=== PATIENT | female | born 1995 | race Caucasian/White ===

== ENCOUNTER 2024-03-27 00:22 | Inpatient (IN) | payer BC, OTHER, SELFPAY ==
[2024-03-26 23:45] VITALS: BP 138/98; PULSE 76; PULSE 80; O2SAT 97
[2024-03-27] VITALS (84 sets, daily range): BP systolic 106–165; BP diastolic 58–101; PULSE 70–129; RESP 16–18; TEMP 36.5–37.5; O2SAT 93–100; BMI 28.6
[2024-03-27 00:15] LABS: Amnisure Rom* POSITIVE
[2024-03-27 00:54] LABS: Hematocrit 42.8 % (33.0-51.0); Hemoglobin* 14.3 gm/dL (12.0-16.0); Mean Corpuscular HGB Conc 33 gm/dL (32-36); Mean Corpuscular Hemoglobin 32 pg (26-34); Mean Corpuscular Volume 96 fL (80-100); Platelet Count* 148 K/uL (140-440); Red Blood Count 4.44 m/uL (4.00-5.20); White Blood Count* 9.65 K/uL (4.50-11.00)
[2024-03-27 00:58] LABS: Slide Review Reflex No
[2024-03-27 01:11] LABS: Creatinine* 0.5 mg/dL (0.5-1.5); Estimated Glomerular Filt Rate 131 ml/min
[2024-03-27 01:12] LABS: Alanine Aminotransferase* 17 U/L (4-35); Aspartate Amino Transferase* 25 U/L (12-35); Blood Urea Nitrogen* 10 mg/dL (5-24)
[2024-03-27] MEDS: LACTATED RINGERS 500 ML 500 ML 650 ML IV (03:30)
[2024-03-27] MEDS: LIDOCAINE 2% (PF) 5 ML VIAL EPIDURAL (03:56)
--- NOTE | 2024-03-27 03:58 | PM.ANBPRC ---
PFSH PFSH Social History What is your current living situation?: I presently have a place to live Problems where you live: no known problems In the past 12 months, utilities in danger of being shut off: no In the past 12 mos, have been you worried that your food would run out before you had money to buy more?: never true In the past 12 mos, the food you bought just didn't last and you didn't have money to buy more?: never true Smoking Status: Never smoker How often does anyone, including family, friends and others, physically hurt you: never How often does anyone, including family, friends and others, insult or talk down to you: never How often does anyone, including family, friends and others, threaten you with harm: never How often does anyone, including family, friends and others, scream or curse at you: never Meds Home Medications and Allergies Home Medications ?Medication ?Instructions ?Recorded ?Confirmed ?Type vit no.95-ferrous 1 tab PO DAILY 03/26/24 03/26/24 History fumarate 28 mg-folic acid 800 mcg tablet () cetirizine 10 mg capsule (Zyrtec) 10 mg PO DAILY PRN 03/27/24 03/27/24 History Allergies Allergy/AdvReac Type Severity Reaction Status Date / Time No Known Drug Allergies Allergy Verified 03/27/24 01:00 Results Labs Labs: Laboratory Results - last 24 hr 03/26/24 03/27/24 23:46 00:45 WBC 9.65 RBC 4.44 Hgb 14.3 Hct 42.8 MCV 96 MCH 32 MCHC 33 Plt Count 148 BUN 10 Creatinine 0.5 Estimated GFR 131 AST 25 ALT 17 Membrane Rupture POSITIVE Blood Type A Positive Antibody Screen NEGATIVE Vital Signs Vital Signs: Last Vital Signs Temp 99.2 F 03/27/24 02:35 Pulse 86 03/27/24 03:56 Resp 18 03/27/24 02:35 BP 137/71 03/27/24 03:56 Pulse Ox 98 03/27/24 03:56 Weight: 75.659 kg Height: 162.56 cm Anesthesia Procedures Epidural Insertion Patient Location: OB Start Time: 03:40 Stop Time: 04:10 Start Date: 03/27/24 Stop Date: 03/27/24 Reason for Block: primary anesthetic Patient Position: sitting Performed By: Todd Tracey Preanesthetic Checklist: IV checked, risks and benefits discussed, surgical consent, monitors and equipment checked, pre-op evaluation, timeout performed and anesthesia consent Prep: chlorhexidine gluconate Monitoring: blood pressure monitoring, electronic device monitor, continuous pulse oximetry and heart rate Approach: midline Vertebral Space: lumbar (1-5) Needle Type: Tuohy needle Injection Technique: continuous catheter (catheter) Needle gauge: 17 Needle Length (cm): 10 cm Needle Insertion Depth (cm): 5 Catheter Gauge: 19 Catheter Type: multi-orifice Catheter at skin depth (cm): 10 Test Dose Result: negative and lidocaine 1.5% with epinephrine 1 to 200,000
[2024-03-27] MEDS: ROPIVACAINE 0.2% 100 ml 100 ML 12 MG EPIDURAL (04:01)
[2024-03-27] MEDS: LACTATED RINGERS 500 ML 500 ML IV (04:11)
[2024-03-27] MEDS: LACTATED RINGERS 500 ML 500 ML 125 ML IV (05:27)
[2024-03-27 06:08] LABS: Total Protein Urine 10 mg/dL
[2024-03-27 06:09] LABS: Creatinine Urine 89.9 mg/dL; Protein Creatinine Ratio Urine 0.11 (0-0.19)
[2024-03-27] MEDS: OXYTOCIN 30 unit/500 ML in NS 30 UNIT/500 ML BAG 300 UNIT IVPB (08:57)
[2024-03-27] MEDS: LIDOCAINE 1 % PF 30 ML INJECTION (09:06)
--- NOTE | 2024-03-27 09:28 | PM.OBHPLI ---
OB - H&P: HPI Labor/Induction History of Present Illness Time Seen by Provider: 08:00 Date Seen: 03/27/24 Chief Complaint: The patient is a 28 year old 1 para 0 at 40.3 weeks gestation who presented after SROM at 10:45 on 03/26/2024 Chief complaint: maternity : 1 Para: 0 Indications for induction: induced hypertension Narrative: Mile Cordero is a 28 year old female who presented after SROM at home of clear fluid at 40.2 weeks gestation. She otherwise felt well. Was found to have elevated BP >140/90 during labor. No prior to labor. She has had weeks of swelling, no other symptoms/signs of preeclampsia. Pre-E labs were all within normal limits. History of Present care: good care Ultrasounds: normal 1st trimester US and normal mid trimester US complications: gestational hypertension (diagnosed during labor) Labs Blood type: A (+) positive Rubella: immune RPR/VDLR: nonreactive GBS status: negative HBsAG: negative Review of Systems Status of ROS: Reports: 10 or more systems reviewed and unremarkable except as noted in History and below Meds Home Medications and Allergies Home Medications ?Medication ?Instructions ?Recorded ?Confirmed ?Type vit no.95-ferrous 1 tab PO DAILY 03/26/24 03/26/24 History fumarate 28 mg-folic acid 800 mcg tablet () cetirizine 10 mg capsule (Zyrtec) 10 mg PO DAILY PRN 03/27/24 03/27/24 History Allergies Allergy/AdvReac Type Severity Reaction Status Date / Time No Known Drug Allergies Allergy Verified 03/27/24 01:00 OB - H&P: Exam Physical Exam: Vital signs: Temp Pulse Resp BP Pulse Ox 99.5 F 87 18 123/66 99 03/27/24 07:07 03/27/24 09:17 03/27/24 07:07 03/27/24 09:17 03/27/24 07:49 Constitutional: Constitutional: no acute distress Comments: resting comfortably after epidural Routine HEENT Exam: Head: Present atraumatic and normal inspection Routine Neck Exam: Neck: Present full ROM Routine Respiratory Exam: Respiratory: Present CTA bilaterally Routine Cardiovascular Exam: Cardiovascular: RRR, S1 and S2 Detailed Labor and Delivery Exam: Patient Gravid: Yes Dilation (cm): 10 Effacement (%): 100 Fetus (Single): Station: 0 Amniotic Membrane Status: SROM Amniotic Membrane Fluid Description: Clear Heart Rate Baseline: 150 Monitor Accelerations: Present Monitor Decelerations: Variable (one deep variable, smaller early decels) Longterm Variability: Moderate (6-25) Routine Extremities Exam: Extremities: Present pedal edema; Absent calf tenderness Routine Skin Exam: Present intact Routine Neurological Exam: Present alert and oriented X3 Detailed Psychiatric Exam: Mood and affect: Present flat OB - Results Labs Labs: Short CBC 03/27/24 Range/Units 00:45 WBC 9.65 (4.50-11.00) K/uL Hgb 14.3 (12.0-16.0) gm/dL Hct 42.8 (33.0-51.0) % Plt Count 148 (140-440) K/uL BMP 03/27/24 00:45 BUN 10 Creatinine 0.5 Liver Function 03/27/24 Range/Units 00:45 AST 25 (12-35) U/L ALT 17 (4-35) U/L OB - Problem Based A/P Additional Plan (1) Term : Status: Acute (2) Gestational hypertension: Problem details: Elevated BP >140/90 during labor, Preeclampsia labs within normal limits Status: Acute (3) SROM (spontaneous rupture of membranes): Status: Acute Plan - expectant management, anticipate Delivery/Labor/Induction Plan Plan: expectant management
--- NOTE | 2024-03-27 09:36 | W.PM.VAGDE_ITS ---
OB Procedure Vag Delivery Mother Details Mother Details: The patient is a 28 year-old, 1, Para 0, admitted on 03/27/24 at 40.2 Days gestation. : 1 Para: 1 Weeks Gestation: 40.3 Admission Date: 03/26/24 Additional Details Amniotic Membrane Status: SROM Amniotic Membrane Rupture Date: 03/26/24 Amniotic Membrane Rupture Time: 10:45 Amniotic Membrane Fluid Description: Clear Analgesia/Anesthesia Type: Epidural Waterbirth: No [place]: No Labor Onset: 05:18 Complete: 07:27 Pushin:55 Heart: heart tones during second stage: Had prolonged decels with pushing, requiring repositioning. We pushed on side and FHT recovered more quickly between contractions. Delivery Details Delivery Date: 03/27/24 Delivery Time: 08:56 Route of delivery: Infant Gender: Male Infant Viability: Alive; Heart Rate Present Position at Delivery: OA Delivery Details: Patient presented to L&D after SROM of clear fluid at home. Progressed well, receiving epidural for analgesia. She became complete at 0727 and I was called to the bedside. We started pushing at 0755, requiring some position changes due to prolonged decels into the 90s that recovered with maternal side lie. She pushed effectively, delivering a viable male infant over intact perineum at 0856 . Infant was placed on maternal abdomen.? Terminal meconium was noted. Cord was clamped and cut after a 30-60 second delay by father of baby who was in attendance at delivery. Nose and mouth were bulb suctioned.? Infant weight pending. Small 2nd degree laceration was repaired in the usual fashion after administration of lidocaine. 1 Minute Interval Total Score: 9 5 Minute Interval Total Score: 9 Additional Details Shoulder Dystocia: No Placenta Delivery Time: 09:03 Placental Delivery Description: Spontaneous Delivery repair: Vicryl Procedure Done: Global Blood Loss: 200 Laceration: Perineal - 2nd Degree Episiotomy Description: None Blood Loss Measurement Type: QBL Bakri Used: No Sponge/Need Count Correct: Yes Cord Vessel Description: 3 Vessels Event Summary Status: Mother and were stable after delivery.
[2024-03-27] MEDS: IBUPROFEN 600 MG TABLET PO ×3 (10:59→23:17)
[2024-03-28 02:30] VITALS: BP 125/80; PULSE 91; RESP 16; TEMP 36.7; O2SAT 96
[2024-03-28] MEDS: IBUPROFEN 600 MG TABLET PO (06:02)
[2024-03-28 06:30] VITALS: BP 119/83; PULSE 85; RESP 16; TEMP 36.6; O2SAT 96
[2024-03-28 06:31] LABS: Hemoglobin* 10.5 gm/dL (12.0-16.0)
[2024-03-28 08:05] VITALS: BP 124/78; PULSE 87; RESP 16; TEMP 36.6; O2SAT 97
--- NOTE | 2024-03-28 08:53 | PM.OBDSVD1 ---
DS: Providers Provider Date Seen: 03/28/24 Date of admission: 03/27/24 00:22 Primary care physician: Not a Local Provider Admitting Clinician: Yoli Crespo DO Attending Physician on discharge: Yoli Crespo DO Date of Discharge: 03/28/24 DS: Diagnosis Discharge Diagnosis (1) Vaginal delivery: Status: Acute Exam Const: Vital Signs, click to edit/add: Vital Signs - 24 hr 03/27/24 09:01 03/27/24 09:01 03/27/24 09:02 Temperature 99.3 F Pulse Rate 99 129 H Pulse Rate [Pulse Oximeter] Respiratory Rate 16 Blood Pressure 120/77 132/81 Blood Pressure [Ri ght Arm] Pulse Oximetry Oxygen Delivery Me thod 03/27/24 09:17 03/27/24 09:17 03/27/24 09:32 Temperature Pulse Rate 87 88 Pulse Rate [Pulse Oximeter] Respiratory Rate 16 Blood Pressure 123/66 116/61 Blood Pressure [Ri ght Arm] Pulse Oximetry Oxygen Delivery Mi thod 03/27/24 09:32 03/27/24 09:47 03/27/24 09:47 Temperature Pulse Rate 88 Pulse Rate [Pulse Oximeter] Respiratory Rate 16 16 Blood Pressure 122/63 Blood Pressure [Ri ght Arm] Pulse Oximetry Oxygen Delivery Me thod 03/27/24 10:02 03/27/24 10:02 03/27/24 10:32 Temperature Pulse Rate 83 88 Pulse Rate [Pulse Oximeter] Respiratory Rate 16 Blood Pressure 123/67 127/64 Blood Pressure [Ri ght Arm] Pulse Oximetry Oxygen Delivery Mi thod 03/27/24 10:32 03/27/24 10:47 03/27/24 10:47 Temperature Pulse Rate 83 Pulse Rate [Pulse Oximeter] Respiratory Rate 16 16 Blood Pressure 128/64 Blood Pressure [Ri ght Arm] Pulse Oximetry Oxygen Delivery Me thod 03/27/24 11:02 03/27/24 11:02 03/27/24 16:03 Temperature 99.2 F 97.9 F Pulse Rate 80 Pulse Rate [Pulse Oximeter] 76 Respiratory Rate 16 16 Blood Pressure 130/69 Blood Pressure [Ri ght Arm] 113/74 Pulse Oximetry 97 Oxygen Delivery Me thod Room Air 03/27/24 22:00 03/28/24 02:30 03/28/24 06:30 Temperature 98.9 F 98.0 F 97.8 F Pulse Rate Pulse Rate [Pulse Oximeter] 96 91 85 Respiratory Rate 16 16 16 Blood Pressure Blood Pressure [Ri ght Arm] 130/79 125/80 119/83 Pulse Oximetry 96 96 96 Oxygen Delivery Me thod Room Air Room Air Room Air 03/28/24 08:05 Temperature 97.8 F Pulse Rate Pulse Rate [Pulse Oximeter] 87 Respiratory Rate 16 Blood Pressure Blood Pressure [Ri ght Arm] 124/78 Pulse Oximetry 97 Oxygen Delivery Me thod Room Air Documenting provider has reviewed patient's vital signs: yes Common normals: no apparent distress Neck & C-Spine: Common normals: full ROM, no lymphadenopathy, supple and no meningeal signs GI: Common normals: soft to palpation Palpation: soft : OB/external & speculum: Yes deferred Uterus: U/2 Lochia: scant Uterus palpation: uterus nontender Neuro: Meningeal signs: no meningeal signs OB - DS: Summary Hospital Course Hospital Course: The patient is a 28 year old G 1 P 1 at 40.3 weeks gestation that was admitted to the Center on 03/27/24 for YOBANY. She had an uncomplicated vaginal delivery. She delivered a viable male infant. She did have a few elevated blood pressures in labor but these resolved when she got her epidural and did not continue . She is . the patient has done well. Peripartum Data delivery method: Vaginal Laceration description: Perineal - 2nd Degree complications: none Infant Gender: Male Time Spent with Patient Time attestation: Total time spent providing and/or coordinating discharge services: Discharge Plan Discharge Disposition: Home w/ Parent or Adult Date of Admission: 03/27/24 00:22 Attending Provider on Discharge: Jesus Alberto Mckeon Primary Care Provider: Provider,Not a Local Anticipated Discharge Date/Time: 03/28/24 09:11 Discharge Medications: Continued PNV cmb#95-ferrous fumarate-FA [] 28 mg iron- 800 mcg tablet 1 tab PO DAILY Zyrtec 10 mg capsule 10 mg PO DAILY PRN Discharge Orders: Discharge Order (Routine); Ordered 03/28/24 Ordered By: Jesus Alberto Mckeon Patient Education: Vaginal Delivery (DC) Activity Level: Activity as Tolerated Discharge Diet: Regular Follow Up Appointments: Provider,Not a Local [Primary Care Provider] - Forms: MyHealth Info Instructions
[2024-03-29 02:44] LABS: Rapid Plasma Reagin (RPR) Non Reactive (Non Reactive)
== END 2024-03-28 12:58 | disposition home or self-care (01) | DRG 560 ==
LOC: OB OUT 00:23 → OB 10:49
PROVIDERS: Family Medicine; Admitting Provider Family Medicine; Visit Provider Family Medicine
DX: O13.4 Gestational [pregnancy-induced] hypertension without significant proteinuria, complicating childbirth (principal); Z37.0 Single live birth; O42.02 Full-term premature rupture of membranes, onset of labor within 24 hours of rupture; Z3A.40 40 weeks gestation of pregnancy; O70.1 Second degree perineal laceration during delivery
CPT/HCPCS: 01967; 36415; 82261; 82565; 82570; 82760; 82776; 83020; 83021; 83498; 83516; 83789; 84112; 84156; 84443; 84450; 84460; 84520; 85018; 85025; 85027; 86592; 86850; 86900; 86901; G0463; A9270; J2003; J2371; J2795; J7120

== ENCOUNTER 2024-04-03 12:55 | Outpatient (CLI) | payer BC, OTHER, SELFPAY ==
--- NOTE | 2024-04-03 14:08 | P.LACCB_ITS ---
Consult Note - Mom Date of Visit Date of visit: 04/03/24 Reason for consultation: Assistance Needed (difficulty latching) and Breast/Nipple Issue Visit Code: Visit Patient's Information Phone number: [phone] : 1 Para: 1 Allergies No Known Drug Allergies Allergy (Verified 03/27/24 01:00) Delivery Information Delivery type: Vaginal Gestational Age: 40+3 Gestational Weight For Age: AGA Weight: 3.585 kg Discharge Weight: 3.404 kg Percentage weight loss: 5 Baby's Information Baby's Age at Visit: 7 days Baby's Provider or Clinic: [facility] Past Experience Past Experience: No Current Frequency of Day Feedings: every 3 hours, needing to be wakened for feedings Frequency of Night Feedings: 3-4 hours, also needs to be wakened Both Breasts: Yes (offering) Suck: strong Latch: sometimes easy, sometimes not Length of Time: 5-15 min Goals: 1 year or more Pumping Pumping: Yes Quantity Pumped: 2-2.5 oz if he doesn't nurse one side, maybe 1/2 oz on side he nurses Supplementing EBM Supplement: No Formula Supplement: No Baby Elimination Number of Wet Diapers a Day: ea feeding Number of BM a Day: mostly ea feeding; yellow, seedy Breast/Nipple Condition Breast Information: Breasts are symmetrical with rounded lower quadrants, intramammary distance is less than 1.5 inches. No erythema. Nipples are supple, everted prior to feeding. Breast Shape: Round Engorgement: No Maternal Nipple Condition - Left: Common Nipple Maternal Nipple Condition - Right: Common Nipple Sore Nipples: Yes (slight) Interventions for Sore Nipples: Lansinoh/Nipple Cream Baby Assessment Skin: Normal Tongue/frenulum: Normal/elastic Palate: Average Lips: Relaxed and Symmetrical Jaw Alignment: Symmetrical Mucosa: [place], moist Onsite Observation Pre-Feed weight: 3.522 kg (up from 3.402 on 03/31; 120 gms in 3 days) Post-Feed weight: 3.597 kg Milk Transferred (mL): 75 (10 min on right side; 5 min on left) Position: Cross cradle Attachment/latch-on achieved: Easily (on right side) and With difficulty (a bit more challenging on left side) Suck pattern: Suck burst and normal rest Swallow: Audible, consistent Behavior following feed: Relaxed, sleepy Pre-Nursing Left Nipple: Within Normal Limits Pre-Nursing Right Nipple: Within Normal Limits Post-Nursing Left Nipple: Within Normal Limits Post-Nursing Right Nipple: Within Normal Limits Assessments/Interventions Assessments/Interventions: Worked with mom on positioning and asymmetrical latch technique for a wide, deep latch and bringing baby up onto breast to help keep bottom lip flanged out; an mom reports increased comfort with this. Baby able to latch easily to her right breast; needed a bit more shift in positioning for latching to her left breast but then able to get on and move into rhythmic suckling. Discussed normals of ; milk coming in, regulation of supply, use of pump to relieve fullness if needed, but not to pump every feeding if not needed to prevent over supply. Discussed use of Spectra pump as well as Haakaa. Education provided: Early feeding cues to maximize timing of latching, Asymmetric latch technique for wide/deep latch to increase milk, Transfer for baby and increase comfort for mom, Supply/demand nature of milk supply, Sore nipple treatment options and Pumping for milk management Follow-Up Suggested follow up: Appointment as needed Recommend baby be seen by provider for:: for scheduled appt in 2 days Time Spent Time spent with patient (min): 75 (time spent reviewing EMR and face to face with patient, , and ) Meds Home Medications and Allergies Home Medications ?Medication ?Instructions ?Recorded ?Confirmed ?Type vit no.95-ferrous 1 tab PO DAILY 03/26/24 03/26/24 History fumarate 28 mg-folic acid 800 mcg tablet () cetirizine 10 mg capsule (Zyrtec) 10 mg PO DAILY PRN 03/27/24 03/27/24 History Allergies Allergy/AdvReac Type Severity Reaction Status Date / Time No Known Drug Allergies Allergy Verified 03/27/24 01:00
== END 2024-04-03 12:56 | disposition home or self-care (01) ==
LOC: OB LAC 12:57
PROVIDERS: PCP Family Medicine; Visit Provider Obstetrics & Gynecology
DX: Z39.1 Encounter for care and examination of lactating mother (principal)
CPT/HCPCS: G0463